=== PATIENT | male | born 1960 ===

== ENCOUNTER 2017-06-29 09:40 | Day surgery (SDC) | payer MEDICAID ==
[2017-06-23 07:00] VITALS: BMI 24.1
[2017-06-29 10:12] LABS: BASO # 0.03 K/mm3 (0.0-2.0); BASO % 0.5 % (0.0-3.0); EOS # 0.1 (0.0-0.7); EOS % 1.3 % (1.5-5.0); GRAN # 3.51 (1.4-6.5); GRAN % 55.2 % (50.0-68.0); HEMATOCRIT 42.7 % (42.0-52.0); LYMPH # 2.2 (1.2-3.4); LYMPH % 33.9 % (22.0-35.0); MEAN CELL VOLUME 84.6 fl (80.0-105.0); MEAN CORPUSCULAR HEMOGLOBIN 29.5 pg (25.0-35.0); MEAN CORPUSCULAR HGB CONC 34.9 g/dl (31.0-37.0); MEAN PLATELET VOLUME 10.1 fl (7.0-11.0); MONO # 0.6 (0.1-0.6); MONO % 9.1 % (1.0-6.0); RED CELL DISTRIBUTION WIDTH 13.5 % (11.5-14.5); WHITE BLOOD COUNT 6.4 10^3/ul (4.5-11.0)
[2017-06-29 10:21] LABS: BLOOD UREA NITROGEN 17 mg/dL (7-21); CALCIUM 9.5 mg/dL (8.4-10.5); CARBON DIOXIDE 29 mmol/L (21-33); CHLORIDE 103 mmol/L (98-107); GFR AFRICAN-AMERICAN > 60; GLUCOSE,RANDOM 90 mg/dL (70-110); SODIUM 143 mmol/L (132-148)
[2017-06-29 10:27] LABS: INR 1.07 (0.93-1.08); PARTIAL THROMBOPLASTIN TIME 28.6 Seconds (25.1-36.5)
[2017-06-29] MEDS ORDERED: Midazolam 2 MG/2 ML VIAL ONE (11:54)
[2017-06-29] MEDS ORDERED: Lidocaine 1% Inj (20ml) ONE (12:20)
[2017-06-29] MEDS ORDERED: Oxycodone/Acetaminophen 5/325 mg Tab PO PRN (13:34)
[2017-06-29] MEDS ORDERED: Sodium Chloride 0.45% 1,000 ML IV SCH (13:45)
[2017-06-29 14:36] VITALS: PULSE 67; RESP 20; TEMP 97.5; O2SAT 97
--- NOTE | 2017-06-29 14:47 | CT ---
PROCEDURE: CT guided L1 biopsy and marrow aspiration HISTORY: Numerous lytic lesions in the axial skeleton. Evaluate for multiple myeloma or metastatic disease. PHYSICIAN(S): Anuj Horvath MD. TECHNIQUE: The relative risks and indications of the procedure were explained to the patient and consent obtained. The patient was placed prone on the CT scanner and preliminary images through the L1 vertebral body obtained. Conscious sedation and monitoring were provided throughout the procedure by a nurse. Small lytic areas are seen involving the L1 vertebral body and pedicles. A right transferred approach was selected and the area prepped and draped in the usual sterile fashion. 1% Xylocaine was used to anesthetize the skin and soft tissues. And on-control bone biopsy needle was advanced to the right posterior pedicle. Its position was confirmed with CT. The needle was advanced through the pedicle into the posterior L1 vertebral body. Bone marrow aspirations performed at this level. Finally, a long core biopsy of the L1 vertebral body on the right was performed with the on control needle IMPRESSION: 1. CT-guided L1 vertebral body biopsy iand aspiration as described above.
[2017-06-29 15:00] VITALS: BP 125/72
== END 2017-06-29 16:00 | disposition home or self-care (01) ==
LOC: SDS 09:40
PROVIDERS: ATTEND Radiology Vascular & Interventional Radiology
DX: C90.00 Multiple myeloma not having achieved remission (principal); F10.11 Alcohol abuse, in remission; M54.5 Low back pain; M21.70 Unequal limb length (acquired), unspecified site
CPT/HCPCS: 20220; 36415; 77012; 80048; 85025; 85610; 85730; 99152; J2250; J2405; J3010; J7030; J7120